=== PATIENT | male | born 2000 | race African-American/Black ===

== ENCOUNTER 2022-10-31 21:58 | Emergency (ER) | payer OTHER ==
[~2022-10-31] VITALS: Ht 193 cm; Wt 77.5 kg
[~2022-10-31 21:58] MED LIST: NOCURR
[2022-10-31] MEDS ORDERED: IBUPROFEN 600 MG TABLET PO ONE (23:30)
[2022-11-01 01:04] VITALS: BP 119/68
== END 2022-11-01 01:27 | disposition home or self-care (01) ==
LOC: EMS 21:59
DX: S60.011A Contusion of right thumb without damage to nail, initial encounter (principal); S60.021A Contusion of right index finger without damage to nail, initial encounter; W22.8XXA Striking against or struck by other objects, initial encounter; Y93.59 Activity, other involving other sports and athletics played individually; Y92.89 Other specified places as the place of occurrence of the external cause; Y99.8 Other external cause status
CPT/HCPCS: 99283

== ENCOUNTER 2023-01-13 18:12 | Emergency (ER) | payer OTHER ==
[~2023-01-13] VITALS: Ht 195.6 cm; Wt 77.3 kg
[2023-01-13 18:23] VITALS: TEMP 98.3
[2023-01-13] MEDS ORDERED: SODIUM CHLORIDE 0.9% 1,000 ML IV ONE (18:30)
[2023-01-13 18:51] LABS: BASOPHILS % (AUTO) 0.8 % (0.0-2.0); EOSINOPHILS % (AUTO) 1.3 % (1.0-6.0); HEMATOCRIT 43.1 % (41-53); HEMOGLOBIN 14.3 g/dL (13.5-17.5); LYMPHOCYTES # (AUTO) 2.5 K/uL (1.0-4.8); LYMPHOCYTES % (AUTO) 28.7 % (22.0-44.0); MEAN CORPUSCULAR HEMOGLOBIN 28.4 pg (26.0-34.0); MEAN CORPUSCULAR HGB CONC 33.2 G/dL (31.0-37.0); MEAN CORPUSCULAR VOLUME 86 fL (80-100); MONOCYTES # (AUTO) 0.6 K/uL (0.1-1.0); MONOCYTES % (AUTO) 7.2 % (2.0-9.0); NEUTROPHILS # (AUTO) 5.4 K/uL (1.8-7.7); PLATELET COUNT (AUTO) 200 K/uL (150-450); RED BLOOD CELL COUNT(AUTO) 5.03 MIL/uL (4.50-5.90); RED CELL DISTRIBUTION WIDTH 15.7 % (11.5-14.5); WHITE BLOOD COUNT (AUTO) 8.7 K/uL (4.5-11.0)
[2023-01-13 19:05] LABS: ANION GAP 6 mmol/L (8-16); CALCIUM, TOTAL 9.3 mg/dL (8.8-10.5); CARBON DIOXIDE 30 mmol/L (22-29); CHLORIDE 104 mmol/L (98-107); CREATININE 1.08 mg/dL (0.60-1.30); GLOMERULAR FILTR. RATE CALC > 60 mL/min (>60); GLUCOSE,RANDOM 87 mg/dL (70-110); POTASSIUM 3.5 mmol/L (3.5-5.1); SODIUM SERUM 140 mmol/L (136-145); UREA NITROGEN, BLOOD 8 mg/dL (7-18)
[2023-01-13 19:07] LABS: ALCOHOL, BLOOD (SERUM) < 3 mg/dL (0-10)
[2023-01-13] MEDS ORDERED: ACET-2080 PO (20:41)
[2023-01-13] MEDS ORDERED: IBUP-1554 PO (20:41)
[2023-01-13 21:15] VITALS: BP 115/81; PULSE 75; RESP 16
== END 2023-01-13 21:30 | disposition home or self-care (01) ==
LOC: EMS 18:14
DX: S16.1XXA Strain of muscle, fascia and tendon at neck level, initial encounter (principal); S00.03XA Contusion of scalp, initial encounter; S70.211A Abrasion, right hip, initial encounter; S30.1XXA Contusion of abdominal wall, initial encounter; S00.83XA Contusion of other part of head, initial encounter; Y09 Assault by unspecified means; Y93.89 Activity, other specified; Y92.89 Other specified places as the place of occurrence of the external cause
CPT/HCPCS: 99285; 70450; 96360; 71045; 80048; 85025; 36415; 72170; 70486; 72125; G0480; J7030

== ENCOUNTER 2023-02-10 09:30 | Emergency (ER) | payer OTHER ==
[~2023-02-10 09:30] MED LIST changes: +ACET-2080 PO; +IBUP-1554 PO
== END 2023-02-10 09:47 | disposition left against medical advice (07) ==
LOC: EMS 09:31
DX: Z53.21 Procedure and treatment not carried out due to patient leaving prior to being seen by health care provider (principal)

== ENCOUNTER 2023-11-24 07:41 | Emergency (ER) | payer OTHER ==
[~2023-11-24] VITALS: Ht 193 cm; Wt 90.9 kg
[2023-11-24 07:45] VITALS: TEMP 98
[2023-11-24] MEDS: KETOROLAC TROMETHAMINE 60 MG/2 ML VIAL IM ONE (08:15)
[2023-11-24 08:49] LABS: TROPONIN I-HIGH SENSITIVITY 6 ng/L (<76)
[2023-11-24] MEDS ORDERED: IBUP-1492 PO (11:10)
[2023-11-24 11:12] VITALS: BP 109/62; PULSE 59; RESP 14
== END 2023-11-24 11:14 | disposition home or self-care (01) ==
LOC: EMS 07:41
DX: R07.89 Other chest pain (principal); I50.9 Heart failure, unspecified
CPT/HCPCS: 99285; 93306; 71045; 84484; 36415; 93005; 96372; J1885

== ENCOUNTER 2023-12-10 18:27 | Emergency (ER) | payer OTHER ==
[~2023-12-10] VITALS: Ht 193 cm; Wt 75.0 kg
[~2023-12-10 18:27] MED LIST changes: +IBUP-1492 PO
[2023-12-10 18:33] VITALS: TEMP 98.2
[2023-12-10] MEDS: ACETAMINOPHEN 500 MG TABLET PO ONE (20:02)
[2023-12-10] MEDS: IBUPROFEN 600 MG TABLET PO ONE (20:03)
[2023-12-10 20:20] VITALS: BP 121/68; PULSE 68; RESP 18
== END 2023-12-10 21:32 | disposition home or self-care (01) ==
LOC: EMS 18:27
DX: S93.401A Sprain of unspecified ligament of right ankle, initial encounter (principal); X58.XXXA Exposure to other specified factors, initial encounter; Y93.89 Activity, other specified; Y92.89 Other specified places as the place of occurrence of the external cause; Y99.8 Other external cause status
CPT/HCPCS: 99283